=== PATIENT | female | born 2000 | race African-American/Black ===

== ENCOUNTER 2024-10-30 15:36 | Emergency (ER) | payer SELFPAY ==
[~2024-10-30] VITALS: Ht 153 cm; Wt 113.6 kg
[2024-10-30 15:48] VITALS: BP 115/68; PULSE 87; RESP 18; TEMP 97.4; O2SAT 98
[2024-10-30 17:47] LABS: COVID AG,FIA SOURCE NASAL SWAB
[2024-10-30] MEDS: IBUPROFEN 400 MG TABLET PO ONE (18:09)
[2024-10-30] MEDS: DEXAMETHASONE 4 MG TABLET PO ONE (18:10)
[2024-10-30] MEDS: ACETAMINOPHEN 500 MG TABLET PO ONE (18:10)
[2024-10-30 18:13] LABS: SARS-COV2 (COVID) ANTIGEN,FIA Negative (Negative)
[2024-10-30 18:39] LABS: INFLUENZA TYPE A NEGATIVE FOR TYPE A (NEGATIVE); INFLUENZA TYPE B NEGATIVE FOR TYPE B (NEGATIVE)
[2024-10-30 18:42] LABS: RAPID GROUP A STREP NEGATIVE (NEGATIVE)
== END 2024-10-30 18:53 | disposition home or self-care (01) ==
LOC: EMS 15:36
DX: J02.8 Acute pharyngitis due to other specified organisms (principal); B97.89 Other viral agents as the cause of diseases classified elsewhere; Z90.49 Acquired absence of other specified parts of digestive tract; Z20.822 Contact with and (suspected) exposure to COVID-19
CPT/HCPCS: 99284; 87426; 87430; 87804; J8540; Z7502; Z7610